=== PATIENT | male | born 2000 | race Caucasian/White ===

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

== ENCOUNTER 2021-11-08 18:42 | Emergency (ER) | payer OTHER ==
[~2021-11-08] VITALS: Ht 180.3 cm; Wt 102.3 kg
[2021-11-08 18:46] VITALS: BP 132/74
[2021-11-08] MEDS ORDERED: CYCLOBENZAPRINE HCL 10 MG TABLET PO ONE (20:15)
[2021-11-08] MEDS ORDERED: KETOROLAC TROMETHAMINE 30 MG/ML VIAL IM ONE (20:15)
[2021-11-08] MEDS ORDERED: LIDOCAINE 5% TRANSDERMAL PATCH TD ONE (21:15)
[2021-11-08] MEDS ORDERED: DIAZEPAM 2 MG TABLET PO ONE (22:00)
[2021-11-08] MEDS ORDERED: CYCL-448 PO (22:14)
[2021-11-08] MEDS ORDERED: IBUP-2070 PO (22:15)
== END 2021-11-08 22:54 | disposition home or self-care (01) ==
LOC: EMS 18:44
DX: M62.838 Other muscle spasm (principal); Z90.49 Acquired absence of other specified parts of digestive tract
CPT/HCPCS: 96372; 99284; J1885

== ENCOUNTER 2021-11-09 03:08 | Emergency (ER) | payer OTHER ==
[~2021-11-09] VITALS: Ht 180.3 cm; Wt 102.3 kg
[~2021-11-09 03:08] MED LIST: CYCL-448 PO; IBUP-2070 PO
[2021-11-09 03:16] VITALS: BP 135/86
[2021-11-09] MEDS ORDERED: IBUPROFEN 600 MG TABLET PO ONE (04:15)
[2021-11-09] MEDS ORDERED: DIAZEPAM 5 MG TABLET PO ONE (04:15)
== END 2021-11-09 04:33 | disposition home or self-care (01) ==
LOC: EMS 03:09
DX: S13.9XXA Sprain of joints and ligaments of unspecified parts of neck, initial encounter (principal); Z98.890 Other specified postprocedural states; Z87.39 Personal history of other diseases of the musculoskeletal system and connective tissue; X50.0XXA Overexertion from strenuous movement or load, initial encounter; Y93.89 Activity, other specified; Y92.832 Beach as the place of occurrence of the external cause; Y99.8 Other external cause status
CPT/HCPCS: 99283

== ENCOUNTER 2021-12-18 14:44 | Emergency (ER) | payer OTHER ==
[~2021-12-18] VITALS: Ht 180.3 cm; Wt 104.5 kg
[2021-12-18 17:18] LABS: APPEARANCE,URINE HAZY (CLEAR); BILIRUBIN,URINE NEGATIVE (NEGATIVE); GLUCOSE, URINE (UA) NEGATIVE (NEGATIVE); KETONES,URINE NEGATIVE (NEGATIVE); LEUKOCYTE ESTERASE ,URINE NEGATIVE (NEGATIVE); NITRATE,URINE NEGATIVE (NEGATIVE); OCCULT BLOOD,URINE NEGATIVE (NEGATIVE); PH,URINE 7.5 (5.0-8.0); PROTEIN,URINE TRACE mg/dL (NEGATIVE); SPECIFIC GRAVITIY, URINE 1.024 (1.003-1.030); UROBILINOGEN,URINE <=1.0 mg/dL (<=1.0)
[2021-12-18] MEDS ORDERED: CefTRIAXone SODIUM 1 GM/VIAL IM ONE (17:30)
[2021-12-18] MEDS ORDERED: AZITHROMYCIN 500 MG TABLET PO ONE (17:30)
[2021-12-18] MEDS ORDERED: LIDOCAINE/PF 1% 2 ML VIAL IM ONE (17:30)
[2021-12-18 17:50] VITALS: BP 122/70
== END 2021-12-18 17:54 | disposition home or self-care (01) ==
LOC: EMS 14:44
DX: R30.0 Dysuria (principal); Z20.2 Contact with and (suspected) exposure to infections with a predominantly sexual mode of transmission; Z87.39 Personal history of other diseases of the musculoskeletal system and connective tissue; Z98.890 Other specified postprocedural states
CPT/HCPCS: 99283; 81003; 87491; 87591; 96372; J0696; J3490; Q9967

== ENCOUNTER 2022-09-15 22:41 | Emergency (ER) | payer OTHER ==
[~2022-09-15] VITALS: Ht 177.8 cm; Wt 95.5 kg
[~2022-09-15 22:41] MED LIST changes: +IBUP-1492 PO; -IBUP-2070 PO
[2022-09-16] MEDS ORDERED: KETOROLAC TROMETHAMINE 30 MG/ML VIAL IM ONE (00:30)
[2022-09-16 00:50] VITALS: BP 127/74
== END 2022-09-16 00:51 | disposition home or self-care (01) ==
LOC: EMS 22:41
DX: M25.561 Pain in right knee (principal); M62.838 Other muscle spasm; Z90.49 Acquired absence of other specified parts of digestive tract
CPT/HCPCS: 99283; 73562; 96372; J1885